=== PATIENT | male | born 1965 | race Caucasian/White ===

== ENCOUNTER 2018-11-28 17:53 | Emergency (ER) | payer OTHER ==
[~2018-11-28] VITALS: Ht 170.2 cm; Wt 91.2 kg
[~2018-11-28 17:53] MED LIST: CHLO25 PO; CIPR500 PO; HYDACE5325 PO; METR500 PO; POTCHL20ER PO; PROM25 PO
[2018-11-28 18:37] LABS: BASOPHILS ABSOLUTE AUTO 0.03 K/mm3 (0.00-0.23); BASOPHILS PERCENT AUTO 0 % (0-2); EOSINOPHILS ABSOLUTE AUTO 0.01 K/mm3 (0.00-0.68); EOSINOPHILS PERCENT AUTO 0 % (0-6); Hematocrit 45.5 % (37.0-53.0); IMMATURE GRAN ABSOLUTE AUTO 0.05 K/mm3 (0.00-0.10); IMMATURE GRAN PERCENT AUTO 0 % (0-1); LYMPHOCYTES ABSOLUTE AUTO 1.71 K/mm3 (0.84-5.20); LYMPHOCYTES PERCENT AUTO 14 % (21-46); MONOCYTES ABSOLUTE AUTO 0.96 K/mm3 (0.16-1.47); MONOCYTES PERCENT AUTO 8 % (4-13); Mean Corpuscular HGB 30.7 pg (26.0-34.0); Mean Corpuscular HGB Conc 35.2 g/dL (31.5-36.5); Mean Corpuscular Volume 87 fL (80-100); Mean Platelet Volume 9.4 fL (9.1-12.4); NEUTROPHILS ABSOLUTE AUTO 9.61 K/mm3 (1.96-9.15); NEUTROPHILS PERCENT AUTO 78 % (41-73); Platelet Count 289 K/mm3 (150-400); RDW Standard Deviation 38.6 fL (35.1-46.3); Red Blood Cell Count 5.22 M/mm3 (4.30-5.90); White Blood Cell Count 12.37 K/mm3 (4.00-11.30)
[2018-11-28 18:57] LABS: Alanine Aminotransfer (ALT/SGP 34 U/L (12-78); Albumin, Blood 4.2 g/dL (3.4-5.0); Albumin/Globulin Ratio 1.2 (0.8-1.8); Alk Phos 67 U/L (50-136); Anion Gap 8 mmol/L (6-16); Aspartate Aminotrans (AST/SGOT 14 U/L (12-37); Bilirubin, Total 0.5 mg/dL (0.1-1.0); Blood Urea Nitrogen 17 mg/dL (8-24); Bun/Creatinine Ratio 17.8 (12.0-20.0); CO2, Blood 26 mmol/L (21-32); Calcium, Blood 8.8 mg/dL (8.5-10.1); Chloride, Blood 102 mmol/L (98-108); Creatinine, Blood 0.95 mg/dL (0.60-1.20); Globulin, Blood 3.4 g/dL (2.2-4.0); Glomerular Filtration Rate >60 (60-); Glucose, Blood 121 mg/dL (70-99); Potassium, Blood 3.5 mmol/L (3.5-5.5); Sodium, Blood 136 mmol/L (136-145); Total Protein, Blood 7.6 g/dL (6.4-8.2); Troponin I <0.015 ng/mL (0.000-0.040)
[2018-11-28] MEDS ORDERED: Ativan1 MG PO (21:14)
[2018-11-28] MEDS ORDERED: Hydrochloroth12.5 MG PO (21:14)
== END 2018-11-28 21:30 | disposition home or self-care (01) ==
LOC: ER 17:53
PROVIDERS: Physician Assistant
DX: I10 Essential (primary) hypertension (principal); F41.9 Anxiety disorder, unspecified; F17.210 Nicotine dependence, cigarettes, uncomplicated; Z79.899 Other long term (current) drug therapy
CPT/HCPCS: 80053; 84484; 85025; 93005; 93010; 96374; 96375; 99284-25; J0360; J2060

== ENCOUNTER 2021-03-19 09:45 | Day surgery (SDC) | payer SELFPAY ==
[~2021-03-19] VITALS: Ht 170.2 cm; Wt 97.5 kg
[~2021-03-19 09:45] MED LIST changes: +Ativan1 MG PO; +Hydrochloroth12.5 MG PO
--- NOTE | 2021-03-19 10:24 | NUR ---
03/19/21 1024 Susana Hays 1017 TETRACANE 1 DROP INTO RIGHT EYE ORDERED 1018 PLEDGET PLACED INTO RIGHT EYE ORDERED
--- NOTE | 2021-03-19 12:14 | NUR ---
03/19/[address] SPOKE WITH PT ABOUT HYPERTENSION. ENCOURAGED TO SET UP AN APPOINTMENT WITH PCP. PT DOES NOT HAVE A PCP, ENCOURAGED TO GET ONE MAX. NOTIFIED OF NEED FOR TREATMENT OF HYPERTENSION.
== END 2021-03-19 12:06 | disposition home or self-care (01) ==
LOC: ORSCSDS 09:45
PROVIDERS: Ophthalmology
PROC: 08RJ3JZ Replacement of Right Lens with Synthetic Substitute, Percutaneous Approach (ICD-10-PCS; principal; 2021-03-19 11:15)
DX: H25.11 Age-related nuclear cataract, right eye (principal); I10 Essential (primary) hypertension; E66.9 Obesity, unspecified; Z68.33 Body mass index [BMI] 33.0-33.9, adult
CPT/HCPCS: A9270; J2001; J2250; J3010; J3301; J7040; V2632

== ENCOUNTER → 2021-03-20 | Outpatient (CLI) | payer SELFPAY ==
[~2021-03-20] MED LIST changes: +CARV25 PO; +Lisinopril-Hct1 EAC4 PO
[2021-03-20 10:27] LABS: BASOPHILS ABSOLUTE AUTO 0.03 K/mm3 (0.00-0.23); BASOPHILS PERCENT AUTO 1 % (0-2); EOSINOPHILS ABSOLUTE AUTO 0.06 K/mm3 (0.00-0.68); EOSINOPHILS PERCENT AUTO 1 % (0-6); Hematocrit 42.5 % (37.0-53.0); Hemoglobin 14.8 g/dL (13.5-17.5); IMMATURE GRAN ABSOLUTE AUTO 0.02 K/mm3 (0.00-0.10); IMMATURE GRAN PERCENT AUTO 0 % (0-1); LYMPHOCYTES ABSOLUTE AUTO 1.63 K/mm3 (0.84-5.20); LYMPHOCYTES PERCENT AUTO 27 % (21-46); MONOCYTES ABSOLUTE AUTO 0.46 K/mm3 (0.16-1.47); MONOCYTES PERCENT AUTO 8 % (4-13); Mean Corpuscular HGB 30.3 pg (26.0-34.0); Mean Corpuscular HGB Conc 34.8 g/dL (31.5-36.5); Mean Corpuscular Volume 87 fL (80-100); Mean Platelet Volume 9.6 fL (9.1-12.4); NEUTROPHILS ABSOLUTE AUTO 3.94 K/mm3 (1.96-9.15); NEUTROPHILS PERCENT AUTO 64 % (41-73); Platelet Count 257 K/mm3 (150-400); RDW Coefficient Variation 12.6 % (11.7-14.2); RDW Standard Deviation 40.2 fL (35.1-46.3); Red Blood Cell Count 4.88 M/mm3 (4.30-5.90); White Blood Cell Count 6.14 K/mm3 (4.00-11.30)
[2021-03-20 10:40] LABS: Alanine Aminotransfer (ALT/SGP 35 U/L (12-78); Albumin, Blood 4.1 g/dL (3.4-5.0); Albumin/Globulin Ratio 1.2 (0.8-1.8); Alk Phos 66 U/L (40-126); Anion Gap 9 mmol/L (6-16); Aspartate Aminotrans (AST/SGOT 17 U/L (12-37); Bilirubin, Total 0.5 mg/dL (0.1-1.0); Blood Urea Nitrogen 11 mg/dL (8-24); Bun/Creatinine Ratio 13.3 (12.0-20.0); CO2, Blood 29 mmol/L (21-32); Chloride, Blood 103 mmol/L (98-108); Creatinine, Blood 0.83 mg/dL (0.60-1.20); Globulin, Blood 3.4 g/dL (2.2-4.0); Glomerular Filtration Rate >60 (60-); Glucose, Blood 87 mg/dL (70-99); Potassium, Blood 3.6 mmol/L (3.5-5.5); Sodium, Blood 141 mmol/L (136-145); Total Protein, Blood 7.5 g/dL (6.4-8.2)
== END | disposition home or self-care (01) ==
LOC: LAB EV 10:21 → LAB SHORT 10:21
PROVIDERS: Physician Assistant Surgical
DX: I10 Essential (primary) hypertension (principal)
CPT/HCPCS: 80053; 85025

== ENCOUNTER 2021-04-09 10:37 | Day surgery (SDC) | payer SELFPAY ==
[~2021-04-09] VITALS: Ht 170.2 cm; Wt 93.1 kg
[~2021-04-09 10:37] MED LIST changes: -CARV25 PO; -Lisinopril-Hct1 EAC4 PO
--- NOTE | 2021-04-09 11:03 | NUR ---
04/09/21 1103 Ashley Terry, RN CHARTING
[2021-04-09] MEDS ORDERED: CARV25 PO (11:07)
[2021-04-09] MEDS ORDERED: Lisinopril-Hct1 EAC4 PO (11:08)
--- NOTE | 2021-04-09 12:47 | NUR ---
04/09/21 1247 Hoda Michaud VISION BLUE/TRYPAN BLUE 0.06% USED. LOT [id number]. EXP 04-21
== END 2021-04-09 13:28 | disposition home or self-care (01) ==
LOC: ORSCSDS 10:37
PROVIDERS: Ophthalmology
PROC: 08RK3JZ Replacement of Left Lens with Synthetic Substitute, Percutaneous Approach (ICD-10-PCS; principal; 2021-04-09 12:00)
DX: H25.12 Age-related nuclear cataract, left eye (principal); I10 Essential (primary) hypertension; Z87.891 Personal history of nicotine dependence; Z79.899 Other long term (current) drug therapy
CPT/HCPCS: A9270; J2001; J2250; J3010; J3301; J7040; V2632

== ENCOUNTER 2023-12-24 15:37 | Observation (INO) | payer SELFPAY ==
[~2023-12-24] VITALS: Ht 167.6 cm; Wt 72.0 kg
[~2023-12-24 15:37] MED LIST changes: +CARV25 PO; +Lisinopril-Hct1 EAC4 PO
[2023-12-24] MEDS ORDERED: Ondansetron HCl 2 MG / ML 2ML Vial IV ONE ×2 (16:15→18:15)
[2023-12-24] MEDS ORDERED: Ketorolac Tromethamine 15mg Vial IV ONE (16:15)
[2023-12-24 17:08] LABS: BASOPHILS ABSOLUTE AUTO 0.03 K/mm3 (0.00-0.23); BASOPHILS PERCENT AUTO 0 % (0-2); EOSINOPHILS ABSOLUTE AUTO 0.02 K/mm3 (0.00-0.68); EOSINOPHILS PERCENT AUTO 0 % (0-6); Hematocrit 43.6 % (37.0-53.0); Hemoglobin 15.1 g/dL (13.5-17.5); IMMATURE GRAN ABSOLUTE AUTO 0.05 K/mm3 (0.00-0.10); IMMATURE GRAN PERCENT AUTO 0 % (0-1); LYMPHOCYTES ABSOLUTE AUTO 0.75 K/mm3 (0.84-5.20); LYMPHOCYTES PERCENT AUTO 5 % (21-46); MONOCYTES ABSOLUTE AUTO 0.46 K/mm3 (0.16-1.47); MONOCYTES PERCENT AUTO 3 % (4-13); Mean Corpuscular HGB 30.6 pg (26.0-34.0); Mean Corpuscular HGB Conc 34.6 g/dL (31.5-36.5); Mean Corpuscular Volume 88 fL (80-100); Mean Platelet Volume 10.5 fL (9.1-12.4); NEUTROPHILS ABSOLUTE AUTO 14.46 K/mm3 (1.96-9.15); NEUTROPHILS PERCENT AUTO 92 % (41-73); Platelet Count 249 K/mm3 (150-400); RDW Coefficient Variation 13.2 % (11.7-14.2); RDW Standard Deviation 42.8 fL (35.1-46.3); Red Blood Cell Count 4.94 M/mm3 (4.30-5.90); White Blood Cell Count 15.77 K/mm3 (4.00-11.30)
[2023-12-24 17:29] LABS: Albumin, Blood 4.2 g/dL (3.4-5.0); Albumin/Globulin Ratio 1.1 (0.8-1.8); Bilirubin, Total 0.7 mg/dL (0.1-1.0); Bun/Creatinine Ratio 11.4 (12.0-20.0); Creatinine, Blood 0.7 mg/dL (0.60-1.20); Globulin, Blood 3.7 g/dL (2.2-4.0); Potassium, Blood 4.3 mmol/L (3.5-5.5); Total Protein, Blood 7.9 g/dL (6.4-8.2)
[2023-12-24] MEDS ORDERED: HYDROmorphone HCl/Pf 1MG SYR IV ONE (18:15)
[2023-12-24] MEDS ORDERED: HYDROmorphone HCl/Pf 1MG SYR IV PRN (19:15)
[2023-12-24] MEDS ORDERED: Lactated Ringer's 1,000 ML IV SCH (19:15)
[2023-12-24] MEDS ORDERED: Ondansetron HCl 2 MG / ML 2ML Vial IV PRN (19:15)
[2023-12-24 20:29] VITALS: BP 181/81
[2023-12-24 21:36] VITALS: BP 184/90
[2023-12-24] MEDS ORDERED: HydrALAZINE HCl 20 MG / ML 1ML Vial IV PRN (22:50)
[2023-12-24 23:34] VITALS: BP 198/82
--- NOTE | 2023-12-24 23:37 | NUR ---
BP/PHYSICIAN COMMUNICATION INFORMED DR GUIDRY @2142 OF INCREASED BP SINCE ARRIVAL TO HOSPITAL, SBP 180'S. MEDICATED FOR PAIN TO ENSURE PAIN WASNT INCREASING BP. BP DID NOT DECREASE POST PAIN MEDS. DR GUIDRY ORDERED HOSPITALIST CONSULT & EKG TO BE DONE PRIOR TO SURGERY. INFORMED DR PUENTE OF CONSULT & HE CAME TO SEE PT. IV HYDRALAZINE ORDERED. AT 2315 BP 198/82, MEDICATED c 10MG IV HYDRALAZINE. EKG PERFORMED. WILL REASSESS.
[2023-12-24 23:56] VITALS: BP 191/76
[2023-12-25] VITALS (12 sets, daily range): BP systolic 155–189; BP diastolic 74–84
[2023-12-25] MEDS ORDERED: HYDROmorphone HCl/Pf 1MG SYR IV PRN ×2 (01:05→08:50)
[2023-12-25] MEDS ORDERED: HydrALAZINE HCl 20 MG / ML 1ML Vial IV PRN ×2 (01:10→09:55)
[2023-12-25] MEDS ORDERED: Naloxone HCl 0.4MG / ML 1ML Vial IV PRN (01:10)
[2023-12-25] MEDS ORDERED: Ketorolac Tromethamine 15mg Vial IV PRN (01:15)
--- NOTE | 2023-12-25 05:50 | NUR ---
SHIFT SUMMARY ADMITTED FOR INCARCERATED UMBILICAL HERNIA. AOX4. READ PREVIOUS NOTE. SBP 180-190'S, REST OF VS STABLE. HAS BEEN NPO SINCE 0000 FOR POSSIBLE SURGICAL INTERVENTION. DENIES N/V. ABD SOFT, 4/10 ACHY PAIN T/O BODY. GOLFBALL SIZE FIRM BUMP ABOVE UMBILICUS. RECIEVING LR @150 ML. MEDICATED 1x C IV DILAUDID 1x c HYDRALAZINE. WILL MONITOR.
[2023-12-25] MEDS ORDERED: Bupivacaine 0.5% HCl 5 MG/ML 30MLVIAL ONE (08:14)
--- NOTE | 2023-12-25 08:32 | NUR ---
PT OUT OF ROOM FOR PROCEDURE AT THIS TIME.
[2023-12-25] MEDS ORDERED: CeFAZolin Sodium 2,000 MG in NS 50 ML IV SCH (08:35)
[2023-12-25] MEDS ORDERED: CeFAZolin Sodium 2,000 MG VIAL ONE (08:43)
[2023-12-25] MEDS ORDERED: FentaNYL Citrate 50 MCG/ML 2 ML Injection IV PRN ×3 (08:50→09:55)
[2023-12-25] MEDS ORDERED: Ondansetron HCl 2 MG / ML 2ML Vial IV PRN ×2 (08:50→10:00)
[2023-12-25] MEDS ORDERED: Metoclopramide HCl 5MG / ML 2ML Vial IV PRN (08:50)
[2023-12-25] MEDS ORDERED: propofoL 20 ML IV ONE (09:21)
[2023-12-25] MEDS ORDERED: Dexamethasone Sod Phos 10 MG/ML 1ML VIAL ONE (09:21)
[2023-12-25] MEDS ORDERED: Lidocaine HCl 2% 20 ML MDV ONE (09:21)
[2023-12-25] MEDS ORDERED: Ondansetron HCl 2 MG / ML 2ML Vial ONE (09:21)
[2023-12-25] MEDS ORDERED: FentaNYL Citrate 50 MCG/ML 2 ML Injection ONE ×2 (09:21→09:23)
[2023-12-25] MEDS ORDERED: Rocuronium Bromide 10 MG/ML 5ML Injection IV ONE (09:21)
[2023-12-25] MEDS ORDERED: Midazolam HCl 1MG / ML 2ML Vial ONE (09:22)
[2023-12-25] MEDS ORDERED: Labetalol HCL 5 MG/ML 4ML Injection (Single Dose) ONE (09:35)
[2023-12-25] MEDS ORDERED: Sugammadex Sodium 200 MG/2ML SDV (100 MG/ML) ONE (09:44)
[2023-12-25] MEDS ORDERED: NS 1,000 ML IV SCH (09:55)
[2023-12-25] MEDS ORDERED: OxyCODONE HCL 5 MG TAB PO PRN (09:55)
[2023-12-25] MEDS ORDERED: FLU VACC QS2023-24(6MOS UP)/PF 60 MCG/0.5 ML SYRINGE IM ONE (10:00)
[2023-12-25] MEDS ORDERED: Ketorolac Tromethamine 30mg Vial IV PRN (10:05)
--- NOTE | 2023-12-25 11:15 | NUR ---
PT ARRIVED TO UNIT FROM PACU AT 1030 ABLE TO STAND AND TRANSFER TO [facility] FROM [facility]. DENIES PAIN OR NAUSEA, REPORTS FEELING MUCH BETTER. GAUZE AND TEGADERM OVER UMBILICUS, CDI. PT TOLERATING WATER, CRACKERS AND JELLO AT THIS TIME. PAIN SCRIPT GIVEN TO AT THIS TIME PER PT REQUEST.
[2023-12-25] MEDS ORDERED: PERCOCET 10-321 EA10 PO (12:15)
--- NOTE | 2023-12-25 12:34 | NUR ---
PT AND FAMILY PROVIDED WITH DISCHARGE INSTRUCTIONS AND PRINTED MATERIAL. PERIPHERAL IV REMOVED WNL. PT ESCORTED TO AWAITING [facility]HICLEVIA WHEELCHAIR. PT'S BELONGINGS ESCORTED TO VEHICLE BY SPOUSE. PRESCRIPTION PROVIDED FOR POST-OP ANALGESIA.
[2023-12-26] MEDS ORDERED: Enoxaparin 40 MG/0.4 ML SYR SC SCH (09:00)
== END 2023-12-25 12:30 | disposition home or self-care (01) ==
LOC: ER 15:37 → SURS 15:38 → ER 19:38 → SURS 20:07
PROVIDERS: Physician Assistant; ADMIT Surgery
PROC: 0WUF0JZ Supplement Abdominal Wall with Synthetic Substitute, Open Approach (ICD-10-PCS; principal; 2023-12-25 08:00)
DX: K42.0 Umbilical hernia with obstruction, without gangrene (principal); I10 Essential (primary) hypertension; R01.1 Cardiac murmur, unspecified
CPT/HCPCS: 74177; 80053; 83690; 85025; 93005; 93010; 96374; 96375; 96376; 99284-25; C1781; J0360; J0690; J1100; J1170; J1885; J2250; J2405; J2704; J3010; J7120; Q9967